=== PATIENT | female | born 1980 | race Caucasian/White ===

== ENCOUNTER 2020-04-24 18:21 | Emergency (ER) | payer SELFPAY ==
[~2020-04-24] VITALS: Ht 172.7 cm; Wt 68.0 kg
[2020-04-24] MEDS ORDERED: TRAMADOL HYDROC50 M1 PO (19:52)
[2020-04-24 20:00] VITALS: BP 111/75
== END 2020-04-24 20:00 | disposition home or self-care (01) | DRG 563 ==
LOC: ED 18:21
PROC: 2W3TX1Z Immobilization of Left Foot using Splint (ICD-10-PCS; principal; 2020-04-24)
DX: S92.002A Unspecified fracture of left calcaneus, initial encounter for closed fracture (principal); W16.622A Jumping or diving into natural body of water striking bottom causing other injury, initial encounter; Y93.89 Activity, other specified; Y92.828 Other wilderness area as the place of occurrence of the external cause